=== PATIENT | female | born 1970 | race Hispanic/Latino ===

== ENCOUNTER 2024-10-03 06:18 | Day surgery (SDC) | payer OTHER ==
[2024-10-01 13:14] VITALS: BP 123/62; PULSE 52; RESP 18; TEMP 98.2
[2024-10-01 13:28] LABS: IMMATURE GRANULOCYTE ABSOLUTE 0.01 K/uL (0-1); NUCLEATED RED BLOOD CELLS 0.0 % (0.0-0.19); PLATELET COUNT (AUTO) 213 K/uL (130-400); RED BLOOD CELL COUNT(AUTO) 4.54 MIL/uL (4.00-5.50); RED CELL DISTRIBUTION WIDTH 14.5 % (11.0-15.5); WHITE BLOOD COUNT (AUTO) 5.1 K/uL (4.8-10.8)
[2024-10-01 13:33] LABS: INR 1.03 (0.85-1.15)
[2024-10-01 13:37] LABS: ASPARTATE AMINOTRANSFERASE 20.0 U/L (10-37); CREATININE 0.6 mg/dL (0.5-1.0); GLOMERULAR FILTR. RATE CALC 107.0 mL/min (>90); GLUCOSE,RANDOM 93.0 mg/dL (70-105); SODIUM SERUM 139.0 mmol/L (136-145); TOTAL PROTEIN, SERUM 7.8 g/dL (6.0-8.3); UREA NITROGEN, BLOOD 23.0 mg/dL (7-18)
[2024-10-03] VITALS (20 sets, daily range): BP systolic 98–116; BP diastolic 55–83; PULSE 52–66; RESP 8–18; TEMP 97.1–97.6
[~2024-10-03] VITALS: Ht 157.5 cm; Wt 68.2 kg
[~2024-10-03 06:18] MED LIST: LEVO100C5 PO; PROG200C11 PO
[2024-10-03] MEDS: PHENAZOpyridine HCL 200 MG TAB 200 MG TABLET ONE (07:18)
[2024-10-03] MEDS: LACTATED RINGERS 1000ML 1,000 ML IV ONE (07:19)
[2024-10-03] MEDS: SCOPOLAMINE HYDROBROMIDE 1 EACH ADH..PATCH TD ONE (07:19)
[2024-10-03] MEDS ORDERED: MIDAZOLAM HCL 1 MG/ML 2ML VIAL ONE (07:28)
[2024-10-03] MEDS ORDERED: ESTRADIOL TD (07:41)
[2024-10-03] MEDS ORDERED: MAGNESIUM SULFATE 1 GM/2 ML VIAL ONE (07:44)
[2024-10-03] MEDS ORDERED: GLYCOPYRROLATE 0.2 MG/ML 5 ML VIAL ONE (09:55)
[2024-10-03] MEDS ORDERED: NEOSTIGMINE METHYLSULFATE 1MG/ML IV ONE (09:55)
[2024-10-03] MEDS ORDERED: ATROPINE 1MG SYG IVP ONE (10:01)
--- NOTE | 2024-10-03 10:06 | OP ---
Operative Note: DATE OF PROCEDURE: 10/03/24 SURGEON: TALYA IRVIN MD INDUSTRIAL SPRAY PAINTER: [na] ANESTHESIA: [general] ANESTHESIOLOGIST/SHIPWRIGHT HELPER: [general] PREOPERATIVE DIAGNOSIS: [abnormal postmenopausal bleeding, endometrial polyps] POSTOPERATIVE DIAGNOSIS: [same] SYNOPSIS: [na] PROCEDURE: [da Mai Total Laparoscopic Hysterectomy, bilateral salpingectomy, cystoscopy] ESTIMATED BLOOD LOSS: [minimal, 5 cc] INDICATIONS: [na] DESCRIPTION OF PROCEDURE: [The patient and her were visited in the holding area and the operation was stated in plain Cym[place] and she had no additional questions and was ready to proceed. She was taken to the operating room and placed under general anesthesia, with compression hose and sleeves activated prior, and prepped and draped in the usual sterile fashion in the dorsal lithotomy position in the waterford stirrups. A time out was taken to confirm the patient's identity, her allergies, medication administration and the planned operation. A right angle was placed in the vagina and the anterior of the cervix grasped, the uterus sounded 7-8 cm and the large v-care manipulator was sutured into position. A baum catheter was placed which drained orange urine. The tenaculum and right angle were removed and the surgeon's gloves were changed. The patient was placed flat and confirmation of stomach decompression done. After infiltration of 0.025% marcaine an 8 mm incision was made in the left midclavicular line about 2 cm below the costal margin and the disposable veress needle was passed and intraperitoneal placement was confirmed with sterile saline and the drop test. The abdomen was insufflated to a good dome of co2 and the direct visualization davinci trocar camera and sleeve were advanced. Intraperitoneal placement and no trauma were noted. Luis close devices were used at all incisions. The patient was placed in steepest trendelenberg and then brought out as much as possible without the small bowel re-entering the pelvis. Infiltration, incision and placement of an umbilical air seal and a right sided davinci sleeve was accomplished under direct visualization atraumatically. The robot was docked and the fenestrated bipolar and vessel sealer were introduced. First the right and then the left tube was tented up and dissected from the mesenteric connection to the broad ligament to the level of the uterus and the round and uterovarian ligaments were coagulated and divided down to just above the level of the cervix, the anterior and posterior leaves of the broad ligament were and divided posteriorly below the level of the manipulator and to begin the bladder flap anteriorly. the monopolar scissors were used mostly cold to dissect the bladder down the anterior vagina to below the manipulator, the uterine arteries were coagulated and divided and the uterus was amputated from the vagina using the cut mode on the scissors, it was brought out the vagina and the area was copiously irrigated and the cuff closed with two v-lock sutures meeting in the midline and two imbricating sutures of 2-0 pds were placed at the lateral one thirds of the cuff. The area was irrigated and all was hemostatic, the sutures and needles were brought out of the abdomen, the instruments were removed, the davinci was undocked, the abdomen was desufflated, a cystoscopy was performed which showed normal bladder interior and normal ureteral orifices ejecting strong jets of orange urine, approx 100 cc of saline was left in the bladder for a later voiding trial. The sugeon's gloves were changed and the sleeves removed and the previously placed luis-closes were tied at all sites. Pressure was held on the right hand incision for some mild heme ooze.] The skin was closed subcuticularly at all sites. The patient was awakened and taken to the recovery room in stable condition, all sponge, lap and needle counts were correct at the end of the case. the patient's will be called and notified of the patient's stability. Talya Irvin MD [facility] TALYA IRVIN MD Oct 03, 2024 10:06
[2024-10-03] MEDS ORDERED: SUGAMMADEX SODIUM 200 MG/2 ML VIAL IV ONE (10:25)
--- NOTE | 2024-10-03 13:00 | NUR ---
MORPHINE 10 GIVEN IM TO RIGHT GLUTE PER DR IRVIN.
== END 2024-10-03 14:40 | disposition home or self-care (01) ==
LOC: DAH 06:18
PROVIDERS: ATTEND Obstetrics & Gynecology
DX: N95.0 Postmenopausal bleeding (principal); N93.8 Other specified abnormal uterine and vaginal bleeding; N84.0 Polyp of corpus uteri; D25.1 Intramural leiomyoma of uterus; E07.9 Disorder of thyroid, unspecified; I25.2 Old myocardial infarction; Z79.899 Other long term (current) drug therapy; Z79.890 Hormone replacement therapy; Z98.890 Other specified postprocedural states; Z90.89 Acquired absence of other organs; Z98.891 History of uterine scar from previous surgery
CPT/HCPCS: 58571; S2900; 36415; 80053; 84703; 85025; 85610; 85730; 86850; 86900; 86901; 88305; A4344; J0461; J1100; J1885; J2250; J2270; J2371; J2405; J2704; J2710; J2765; J3010; J3475; J3490; J7030; J7120; A4215; A4216; A4221; A4222; A4223; A4510; A4600; A4649; A4663; A4930; J0665; J0690